=== PATIENT | male | born 1935 | race Caucasian/White ===

== ENCOUNTER → 2016-12-27 | Outpatient (CLI) | payer MEDICARE, BC ==
[~2016-12-27] MED LIST: ADVIL200 MG PO; ALEVE 220MG220 MG PO; ALLOPURINOL300 MG PO; ASPIRIN 32325 MG/TAB PO; AZO-CRANBERRY450 MG PO; CARDIO TABS PO; CEFPODOXIME PR200 M1 PO; CETAPHIL1 CRE TP; COLACE 100100 MG/CAP PO; CRANBERRY FRUI405 MG PO; CRESTOR 10MG10 MG PO; ENULOSE10 GM/151 PO; GLUCOSAMINE & C1 CA1 PO; JOINT BOOST1 TA1 PO; LEVAQUIN 5500 MG/TA1 PO; LEXAPRO10 MG PO; LOTREL 5 MG-101 CAP PO; NORCO 325 MG-51 TAB PO; NYSTATIN OR100 MU/ML PO; NYSTATIN POWDER15 GM TOP; OMEGA 31000 MG PO; PAMELOR50 MG PO; PREDNISONE20 MG PO; PRIL40 PO; PRILOSEC 20MG20 MG PO; SYNTHROID0.05 MG/TA PO; VITAMIN B121000 MC2 SL; VITAMIN B1250 MCG PO; VITAMIN D31000 I1 PO; VITAMIN D32000 IU PO; VYTORIN 10 MG-41 TAB PO; ZEGERID 40 MG-11 CAP PO; ZYLOPRIM 100MG100 MG PO; ZYRTEC10 MG PO
[2016-12-27 09:13] LABS: BASO # 0.1 (0.0-0.2); EOS # 0.5 (0.0-0.7); EOS % 8.2 % (0-4.0); GRAN # 3.5 (1.4-6.5); GRAN % 56.8 % (42.2-75.2); HEMATOCRIT 45.7 % (42.0-52.0); HEMOGLOBIN 15.1 g/dl (13.5-18.0); LYMPH # 1.4 (1.2-3.4); LYMPH % 22.5 % (20.0-51.0); MEAN CELL VOLUME 99 fl (80.0-100.0); MEAN CORPUSCULAR HEMOGLOBIN 33 pg (27.0-31.0); MEAN CORPUSCULAR HGB CONC 33 g/dl (33.0-37.0); MONO # 0.7 (0.1-0.6); MONO % 11.3 % (1.7-9.3); PLATELET COUNT 88 K/mm3 (130-400); RED BLOOD COUNT 4.62 M/mm3 (4.20-5.60); REDCELL DISTRIBUTION WIDTH-CV 13.7 % (11.5-14.5); WHITE BLOOD COUNT 6.2 K/mm3 (4.8-10.8)
[2016-12-27 09:40] LABS: ALBUMIN 4.1 gm/dL (3.5-5.0); BILIRUBIN,TOTAL 0.7 mg/dL (0.0-1.0); CALCIUM 9.1 mg/dL (8.4-10.2); CREATININE, serum 0.98 mg/dL (0.66-1.25); POTASSIUM 4.6 mmol/L (3.4-5.0); TOTAL PROTEIN 7.3 gm/dL (6.4-8.2)
[2016-12-27 10:10] LABS: THYROID STIMULATING HORMONE 4.84 uIU/mL (0.465-4.680)
== END ==
LOC: ZCOL.LAB 09:00
PROVIDERS: Internal Medicine
DX: E03.9 Hypothyroidism, unspecified (principal); D69.59 Other secondary thrombocytopenia; I10 Essential (primary) hypertension

== ENCOUNTER → 2017-01-24 | Outpatient (REF) | LOC: ZCOL.LAB 08:42 | DX: Z01.89 Encounter for other specified special examinations (principal) ==

== ENCOUNTER → 2017-05-08 | Outpatient (REF) ==
[2017-05-08 17:10] LABS: BASO % 0.6 % (0.0-2.0); EOS # 0.5 (0.0-0.7); EOS % 7.8 % (0-4.0); GRAN # 3.3 (1.4-6.5); GRAN % 53.2 % (42.2-75.2); HEMATOCRIT 46.5 % (42.0-52.0); HEMOGLOBIN 15.3 g/dl (13.5-18.0); LYMPH # 1.7 (1.2-3.4); LYMPH % 27.1 % (20.0-51.0); MEAN CELL VOLUME 100 fl (80.0-100.0); MEAN CORPUSCULAR HEMOGLOBIN 33 pg (27.0-31.0); MEAN CORPUSCULAR HGB CONC 33 g/dl (33.0-37.0); MONO # 0.7 (0.1-0.6); PLATELET COUNT 57 K/mm3 (130-400); RED BLOOD COUNT 4.66 M/mm3 (4.20-5.60); WHITE BLOOD COUNT 6.3 K/mm3 (4.8-10.8)
== END ==
LOC: ZCOL.LAB 17:06
PROVIDERS: Internal Medicine
DX: Z01.89 Encounter for other specified special examinations (principal)

== ENCOUNTER → 2017-06-26 | Outpatient (REF) ==
[2017-06-26 17:58] LABS: CALCIUM 9.3 mg/dL (8.4-10.2); CREATININE, serum 1.2 mg/dL (0.66-1.25); POTASSIUM 4.2 mmol/L (3.4-5.0)
[2017-06-26 18:28] LABS: THYROID STIMULATING HORMONE 3.05 uIU/mL (0.465-4.680)
== END ==
LOC: ZCOL.LAB 17:41
PROVIDERS: Internal Medicine
DX: I67.9 Cerebrovascular disease, unspecified (principal); E03.9 Hypothyroidism, unspecified

== ENCOUNTER → 2017-07-24 | Outpatient (REF) | LOC: ZCOL.LAB 16:41 | DX: D69.59 Other secondary thrombocytopenia (principal) ==

== ENCOUNTER → 2017-07-24 | Outpatient (REF) | LOC: ZCOL.LAB 15:16 | DX: Z01.89 Encounter for other specified special examinations (principal) ==

== ENCOUNTER → 2017-10-26 | Outpatient (REF) ==
[2017-10-26 15:47] LABS: COLLECTION METHOD CLEAN CATCH
[2017-10-26 15:53] LABS: MUCOUS Present /lpf; PH 5 (5-8); SQUAMOUS EPITHELIAL 0-2 /hpf; URINE APPEARANCE Clear; URINE BACTERIA None Seen /hpf; URINE BILIRUBIN Negative (NEGATIVE); URINE BLOOD Negative (NEGATIVE); URINE COLOR Yellow; URINE GLUCOSE Negative (NEGATIVE); URINE KETONE Negative (NEGATIVE); URINE LEUKOCYTE ESTERASE Negative (NEGATIVE); URINE NITRATE Negative (NEGATIVE); URINE PROTEIN(semi-quant) 1+ (NEGATIVE); URINE RBC 0-2 /hpf; URINE UROBILINOGEN >=4.0 mg/dL (NEGATIVE); URINE WBC 0-2 /hpf
== END ==
LOC: ZCOL.LAB 15:44
PROVIDERS: Internal Medicine
DX: N39.0 Urinary tract infection, site not specified (principal)

== ENCOUNTER → 2017-11-06 | Outpatient (REF) ==
[2017-11-06 10:47] LABS: BASO % 0.6 % (0.0-2.0); EOS # 0.4 (0.0-0.7); GRAN # 3.7 (1.4-6.5); GRAN % 53.4 % (42.2-75.2); HEMATOCRIT 42.1 % (42.0-52.0); HEMOGLOBIN 13.8 g/dl (13.5-18.0); LYMPH # 1.8 (1.2-3.4); LYMPH % 26.9 % (20.0-51.0); MEAN CELL VOLUME 101 fl (80.0-100.0); MEAN CORPUSCULAR HEMOGLOBIN 33 pg (27.0-31.0); MEAN CORPUSCULAR HGB CONC 33 g/dl (33.0-37.0); MEAN PLATELET VOLUME 10.3 fl (7.4-10.4); MONO # 0.9 (0.1-0.6); MONO % 12.8 % (1.7-9.3); PLATELET COUNT 107 K/mm3 (130-400); RED BLOOD COUNT 4.18 M/mm3 (4.20-5.60); REDCELL DISTRIBUTION WIDTH-CV 13.9 % (11.5-14.5)
== END ==
LOC: ZCOL.LAB 10:38
PROVIDERS: Internal Medicine
DX: Z01.89 Encounter for other specified special examinations (principal)

== ENCOUNTER → 2017-12-18 | Outpatient (REF) ==
[2017-12-18 11:53] LABS: BASO % 0.5 % (0.0-2.0); EOS # 0.3 (0.0-0.7); EOS % 5.2 % (0-4.0); GRAN % 64.7 % (42.2-75.2); HEMATOCRIT 42.9 % (42.0-52.0); HEMOGLOBIN 14.2 g/dl (13.5-18.0); LYMPH # 1.3 (1.2-3.4); LYMPH % 20.3 % (20.0-51.0); MEAN CELL VOLUME 101 fl (80.0-100.0); MEAN CORPUSCULAR HEMOGLOBIN 33 pg (27.0-31.0); MEAN CORPUSCULAR HGB CONC 33 g/dl (33.0-37.0); MEAN PLATELET VOLUME 11.1 fl (7.4-10.4); MONO # 0.6 (0.1-0.6); MONO % 9.1 % (1.7-9.3); PLATELET COUNT 88 K/mm3 (130-400); RED BLOOD COUNT 4.25 M/mm3 (4.20-5.60); REDCELL DISTRIBUTION WIDTH-CV 13.4 % (11.5-14.5)
== END ==
LOC: ZCOL.LAB 11:36
PROVIDERS: Internal Medicine
DX: D69.59 Other secondary thrombocytopenia (principal)

== ENCOUNTER → 2018-04-24 | Outpatient (CLI) | payer MEDICARE, BC | LOC: ZCOL.LAB 16:11 | DX: D69.59 Other secondary thrombocytopenia (principal) ==

== ENCOUNTER 2018-06-20 09:55 | Emergency (ER) | payer MEDICARE, BC ==
[~2018-06-20] VITALS: Ht 182.9 cm; Wt 95.9 kg
[~2018-06-20 09:55] MED LIST changes: -OMEGA 31000 MG PO; +OMEGA-3 1000 MG1 CAP PO
[2018-06-20 09:56] VITALS: TEMP 97.6
[2018-06-20 10:42] LABS: BASO % 0.6 % (0.0-2.0); EOS # 0.3 (0.0-0.7); EOS % 5.6 % (0-4.0); GRAN # 2.8 (1.4-6.5); GRAN % 52.8 % (42.2-75.2); HEMATOCRIT 44.5 % (42.0-52.0); HEMOGLOBIN 14.7 g/dl (13.5-18.0); LYMPH # 1.5 (1.2-3.4); LYMPH % 27.6 % (20.0-51.0); MEAN CELL VOLUME 101 fl (80.0-100.0); MEAN CORPUSCULAR HEMOGLOBIN 33 pg (27.0-31.0); MEAN CORPUSCULAR HGB CONC 33 g/dl (33.0-37.0); MEAN PLATELET VOLUME 9.5 fl (7.4-10.4); MONO # 0.7 (0.1-0.6); PLATELET COUNT 161 K/mm3 (130-400); RED BLOOD COUNT 4.43 M/mm3 (4.20-5.60); REDCELL DISTRIBUTION WIDTH-CV 13.5 % (11.5-14.5)
[2018-06-20 10:43] LABS: BILIRUBIN,TOTAL 0.4 mg/dL (0.0-1.0); CALCIUM 9.5 mg/dL (8.4-10.2); CREATININE, serum 1.24 mg/dL (0.66-1.25); POTASSIUM 4.7 mmol/L (3.4-5.0); TOTAL PROTEIN 7.5 gm/dL (6.4-8.2)
[2018-06-20] MEDS ORDERED: TYLENOL SU650 MG/SUP RC (10:44)
[2018-06-20] MEDS ORDERED: TYLENOL 325MG325 MG PO (10:44)
[2018-06-20] MEDS ORDERED: ALEVE 220MG220 MG PO (10:45)
[2018-06-20] MEDS ORDERED: RT ALBUTER2.5 MG/0.5 IH (10:45)
[2018-06-20] MEDS ORDERED: DULCOLAX S10 MG/SUPP RC (10:47)
[2018-06-20] MEDS ORDERED: CRANBERRY FRUI405 MG PO (10:48)
[2018-06-20] MEDS ORDERED: DEBROX OT (10:49)
[2018-06-20] MEDS ORDERED: ADVIL200 MG PO (10:53)
[2018-06-20] MEDS ORDERED: LOTREL 5/10MG C1 CAP PO (10:54)
[2018-06-20] MEDS ORDERED: MELATONIN1 MG PO (10:55)
[2018-06-20] MEDS ORDERED: MILK OF MA400 MG/52 (10:55)
[2018-06-20] MEDS ORDERED: MIRALAX PA17 GM/Dose PO (10:56)
[2018-06-20] MEDS ORDERED: ALMACONE 360 M360 ML PO (10:57)
[2018-06-20] MEDS ORDERED: MUCINEX DM 30 M1 TE1 (10:57)
[2018-06-20] MEDS ORDERED: SENOKOT S 50 MG1 TAB PO (11:02)
[2018-06-20 12:45] VITALS: BP 138/92; PULSE 78
== END 2018-06-20 13:05 | disposition home or self-care (01) ==
LOC: COL.ER 09:55
PROVIDERS: Emergency Medicine
DX: S09.90XA Unspecified injury of head, initial encounter (principal); S16.1XXA Strain of muscle, fascia and tendon at neck level, initial encounter; S00.83XA Contusion of other part of head, initial encounter; R26.89 Other abnormalities of gait and mobility; Z86.73 Personal history of transient ischemic attack (TIA), and cerebral infarction without residual deficits; Z79.82 Long term (current) use of aspirin; W19.XXXA Unspecified fall, initial encounter; Y92.129 Unspecified place in nursing home as the place of occurrence of the external cause

== ENCOUNTER → 2018-09-08 | Outpatient (CLI) | payer MEDICARE, BC ==
[~2018-09-08] MED LIST changes: +ALMACONE 360 M360 ML PO; +DEBROX OT; +DULCOLAX S10 MG/SUPP RC; +LOTREL 5/10MG C1 CAP PO; +MELATONIN1 MG PO; +MILK OF MA400 MG/52; +MIRALAX PA17 GM/Dose PO; +MUCINEX DM 30 M1 TE1; +RT ALBUTER2.5 MG/0.5 IH; +SENOKOT S 50 MG1 TAB PO; +TYLENOL 325MG325 MG PO; +TYLENOL SU650 MG/SUP RC
== END ==
LOC: ZCOL.LAB 11:17
DX: D69.3 Immune thrombocytopenic purpura (principal)

== ENCOUNTER → 2018-12-21 | Outpatient (CLI) | payer MEDICARE, BC ==
[2018-12-21 16:16] LABS: COLLECTION METHOD CLEAN CATCH
[2018-12-21 16:22] LABS: MUCOUS Present /lpf; PH 6 (5-8); SQUAMOUS EPITHELIAL None Seen /hpf; URINE APPEARANCE Clear; URINE BACTERIA None Seen /hpf; URINE BILIRUBIN Negative (NEGATIVE); URINE BLOOD Negative (NEGATIVE); URINE COLOR Yellow; URINE GLUCOSE Negative (NEGATIVE); URINE KETONE Negative (NEGATIVE); URINE LEUKOCYTE ESTERASE Negative (NEGATIVE); URINE NITRATE Negative (NEGATIVE); URINE PROTEIN(semi-quant) Negative (NEGATIVE); URINE RBC None Seen /hpf; URINE UROBILINOGEN Negative (NEGATIVE); URINE WBC 0-2 /hpf
== END ==
LOC: ZCOL.LAB 15:30
PROVIDERS: Internal Medicine
DX: R41.0 Disorientation, unspecified (principal)

== ENCOUNTER → 2019-01-13 | Outpatient (REF) ==
[2019-01-13 19:48] LABS: COLLECTION METHOD CLEAN CATCH
[2019-01-13 20:00] LABS: PH 6 (5-8); SQUAMOUS EPITHELIAL 0-2 /hpf; URINE APPEARANCE Clear; URINE BACTERIA None Seen /hpf; URINE BILIRUBIN Negative (NEGATIVE); URINE BLOOD Negative (NEGATIVE); URINE COLOR Straw; URINE GLUCOSE Negative (NEGATIVE); URINE KETONE Negative (NEGATIVE); URINE LEUKOCYTE ESTERASE Negative (NEGATIVE); URINE NITRATE Negative (NEGATIVE); URINE PROTEIN(semi-quant) Negative (NEGATIVE); URINE RBC 0-2 /hpf; URINE UROBILINOGEN Negative (NEGATIVE); URINE WBC 0-2 /hpf
== END ==
LOC: ZCOL.LAB 19:38
PROVIDERS: Internal Medicine
DX: N39.0 Urinary tract infection, site not specified (principal); R53.81 Other malaise

== ENCOUNTER → 2019-02-13 | Outpatient (CLI) | payer MEDICARE, BC ==
[2019-02-13 10:07] LABS: BASO % 0.8 % (0.0-2.0); EOS # 0.4 (0.0-0.7); EOS % 6.6 % (0-4.0); GRAN % 55.9 % (42.2-75.2); HEMATOCRIT 44.4 % (42.0-52.0); HEMOGLOBIN 14.5 g/dl (13.5-18.0); LYMPH # 1.4 (1.2-3.4); LYMPH % 25.9 % (20.0-51.0); MEAN CELL VOLUME 101 fl (80.0-100.0); MEAN CORPUSCULAR HEMOGLOBIN 33 pg (27.0-31.0); MEAN CORPUSCULAR HGB CONC 33 g/dl (33.0-37.0); MONO # 0.6 (0.1-0.6); MONO % 10.6 % (1.7-9.3); RED BLOOD COUNT 4.39 M/mm3 (4.20-5.60); REDCELL DISTRIBUTION WIDTH-CV 13.8 % (11.5-14.5)
[2019-02-13 10:14] LABS: PLATELET COUNT 42 K/mm3 (130-400)
== END ==
LOC: ZCOL.LAB 09:41
PROVIDERS: Internal Medicine
DX: D69.59 Other secondary thrombocytopenia (principal)

== ENCOUNTER → 2019-03-24 | Outpatient (CLI) | payer MEDICARE, BC ==
[2019-03-24 21:42] LABS: BASO % 0.8 % (0.0-2.0); EOS # 0.4 (0.0-0.7); EOS % 8.4 % (0-4.0); GRAN # 2.7 (1.4-6.5); HEMATOCRIT 43.1 % (42.0-52.0); HEMOGLOBIN 14.2 g/dl (13.5-18.0); LYMPH # 1.2 (1.2-3.4); LYMPH % 24.4 % (20.0-51.0); MEAN CELL VOLUME 101 fl (80.0-100.0); MEAN CORPUSCULAR HEMOGLOBIN 33 pg (27.0-31.0); MEAN CORPUSCULAR HGB CONC 33 g/dl (33.0-37.0); MEAN PLATELET VOLUME 10.6 fl (7.4-10.4); MONO # 0.7 (0.1-0.6); MONO % 13.2 % (1.7-9.3); PLATELET COUNT 90 K/mm3 (130-400); RED BLOOD COUNT 4.25 M/mm3 (4.20-5.60); REDCELL DISTRIBUTION WIDTH-CV 13.7 % (11.5-14.5); RETIC # 0.06 M/mm3 (0.02-0.16); RETIC % 1.3 % (0.5-3.52)
== END ==
LOC: COL.LAB 19:32
PROVIDERS: Family Medicine
DX: D69.59 Other secondary thrombocytopenia (principal)

== ENCOUNTER → 2019-03-24 | Outpatient (CLI) | payer MEDICARE, BC | LOC: COL.RAD 15:12 | DX: R09.02 Hypoxemia (principal); R60.0 Localized edema; R25.1 Tremor, unspecified; Z90.49 Acquired absence of other specified parts of digestive tract ==

== ENCOUNTER → 2019-04-13 | Outpatient (CLI) | payer MEDICARE, BC ==
[2019-04-13 20:42] LABS: COLLECTION METHOD CATHETER
[2019-04-13 20:54] LABS: PH 7 (5-8); SQUAMOUS EPITHELIAL 0-2 /hpf; URINE APPEARANCE Hazy; URINE BACTERIA None Seen /hpf; URINE BILIRUBIN Negative (NEGATIVE); URINE BLOOD Negative (NEGATIVE); URINE COLOR Yellow; URINE GLUCOSE Negative (NEGATIVE); URINE KETONE Negative (NEGATIVE); URINE LEUKOCYTE ESTERASE Negative (NEGATIVE); URINE NITRATE Negative (NEGATIVE); URINE PROTEIN(semi-quant) 1+ (NEGATIVE); URINE RBC 0-2 /hpf; URINE UROBILINOGEN >=4.0 mg/dL (NEGATIVE)
== END ==
LOC: ZCOL.LAB 18:30 → COL.LAB 18:30
PROVIDERS: Internal Medicine
DX: R30.0 Dysuria (principal)

== ENCOUNTER 2019-06-23 11:15 | Emergency (ER) | payer MEDICARE, BC ==
[~2019-06-23] VITALS: Ht 182.9 cm; Wt 88.6 kg
[2019-06-23 11:17] VITALS: BP 138/73; TEMP 98.2
[2019-06-23 12:45] VITALS: PULSE 71
== END 2019-06-23 12:45 | disposition home or self-care (01) ==
LOC: COL.ER 11:15
DX: S70.02XA Contusion of left hip, initial encounter (principal); Z86.73 Personal history of transient ischemic attack (TIA), and cerebral infarction without residual deficits; Z79.82 Long term (current) use of aspirin; W19.XXXA Unspecified fall, initial encounter; Y92.129 Unspecified place in nursing home as the place of occurrence of the external cause

== ENCOUNTER → 2019-12-02 | Outpatient (CLI) | payer MEDICARE, BC ==
[2019-12-02 15:28] LABS: BASO % 0.8 % (0.0-2.0); EOS # 0.4 (0.0-0.7); EOS % 8.4 % (0-4.0); GRAN # 2.7 (1.4-6.5); GRAN % 56.3 % (42.2-75.2); HEMATOCRIT 42.2 % (42.0-52.0); HEMOGLOBIN 13.9 g/dl (13.5-18.0); LYMPH # 1.2 (1.2-3.4); LYMPH % 23.8 % (20.0-51.0); MEAN CELL VOLUME 103 fl (80.0-100.0); MEAN CORPUSCULAR HEMOGLOBIN 34 pg (27.0-31.0); MEAN CORPUSCULAR HGB CONC 33 g/dl (33.0-37.0); MONO # 0.5 (0.1-0.6); MONO % 10.5 % (1.7-9.3); REDCELL DISTRIBUTION WIDTH-CV 14.1 % (11.5-14.5)
[2019-12-02 17:32] LABS: PLATELET COUNT 45 K/mm3 (130-400)
== END ==
LOC: ZCOL.LAB 13:56
PROVIDERS: Internal Medicine
DX: D69.59 Other secondary thrombocytopenia (principal)